=== PATIENT | female | born 1980 | race Caucasian/White ===

== ENCOUNTER → 2016-05-23 | Outpatient (CLI) | payer OTHER ==
[~2016-05-23] MED LIST: CETI10TA10 PO; SERT50TA PO
== END | disposition home or self-care (01) ==
LOC: C.LABSPEC 09:48
PROVIDERS: ATTEND Obstetrics & Gynecology
DX: N76.0 Acute vaginitis (principal)

== ENCOUNTER → 2016-12-31 | Outpatient (CLI) | payer OTHER ==
[2016-12-31 10:30] LABS: CHOLESTEROL/HDL RATIO 4.1
== END | disposition home or self-care (01) ==
LOC: C.LAB1850 08:15
PROVIDERS: ATTEND Family Medicine
DX: Z13.220 Encounter for screening for lipoid disorders (principal); Z13.1 Encounter for screening for diabetes mellitus

== ENCOUNTER 2017-01-23 03:55 | Emergency (ER) | payer OTHER ==
[2017-01-23] MEDS ORDERED: KETOROLAC TROMETHAMINE 30 MG/ML VIAL ONE (04:29)
[2017-01-23] MEDS ORDERED: ONDANSETRON INJ 2 MG/ML 2 ML VIAL ONE (04:29)
[2017-01-23 05:07] LABS: BASO % 0.1 %; BASO ABS # 0.01 K/uL (0-0.2); COMPLETE YES; EOS % 0.5 %; HEMATOCRIT 35.1 % (37-47); IG% 0.1 %; LYMPH % 9.1 %; LYMPH ABS # 0.93 K/uL (1.2-3.4); MEAN CELL VOLUME 91.2 fL (80-100); MEAN CORPUSCULAR HEMOGLOBIN 31.7 pg (25-34); MEAN CORPUSCULAR HGB CONC 34.8 g/dl (32-36); MEAN PLATELET VOLUME 9.6 fL (7.4-10.4); MONO % 5.8 %; NEUT % 84.4 %; PLATELET COUNT 224 K/uL (130-400); RED BLOOD COUNT 3.85 M/uL (4.2-5.4); WHITE BLOOD COUNT 10.17 K/uL (4.8-10.8)
--- NOTE | 2017-01-23 05:11 | EMERGENCY ROOM VISIT NOTE ---
History Report prepared by Jimenez: Daphne Morales Under the Supervision of: Dr. Nurys Lim D.O. First contact with patient: 04:28 Chief Complaint: ILLNESS Stated Complaint: FEVER,N/V/D,DIZZY History of Present Illness The patient is a 36 year old female who presents to the Emergency Room with complaints of sudden diarrhea beginning 2 days ago. The patient also reports having a fever 2 days ago, and vomiting beginning yesterday. She states that she took a hot shower today to stop the chills, but when she got out of the shower, she felt as if she was going to pass out. She also states that she is barely urinating and that she has had a headache. 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 Source of History: patient Onset: 2 days ago Position: other (global) Quality: other (diarrhea) Timing: other (sudden) Associated Symptoms: + fevers, + chills, + headache, + vomiting, + urinary symptoms, + weakness Review of Systems See HPI for pertinent positives & negatives. A total of 10 systems reviewed and were otherwise negative. Past Medical & Surgical Medical Problems: (1) Hyperlipidemia Family History No pertinent family history Social History Marital Status: Housing Status: lives with family Occupation Status: employed Current/Historical Medications Scheduled Sertraline (Zoloft), 50 MG PO DAILY Scheduled PRN Cetirizine Hcl (Zyrtec), 10 MG PO DAILY PRN for ALLERGIC REACTION Allergies Coded Allergies: No Known Allergies (Unverified , 02/15/13) Physical Exam Vital Signs Date Time Temp Pulse Resp B/P (MAP) Pulse Ox O2 Delivery O2 Flow Rate FiO2 01/23/17 05:47 96 20 97 Physical Exam HEENT: Head - normocephalic and atraumatic Pupils are equal, round, and reactive to light. Extraocular eye muscles are intact, and sclera are anicteric. Nose - moist nasal mucosa without discharge. Mouth - moist buccal mucosa. Oropharynx is nonerythematous and there is no tonsillar exudate or edema noted. Neck: Supple; no JVD, nuchal rigidity, cervical lymphadenopathy. Heart: Regular rate and rhythm. There is a normal S1 and S2 with no murmurs, clicks, or gallops appreciated. Lungs: Clear to auscultation bilaterally with no wheezes, rales, or rhonchi. Abdomen: Soft, completely nontender, nondistended, with good bowel sounds. There are no palpable pulsatile masses or hepatosplenomegaly. There is no guarding, rigidity, or rebound noted. Extremities: No evidence of cyanosis, clubbing, or edema. There are easily palpable peripheral pulses. Skin: warm and dry with good turgor and no rashes. Pale. Medical Decision & Procedures Laboratory Results 01/23/17 04:30 Red Blood Count 3.85, Mean Corpuscular Volume 91.2, Mean Corpuscular Hemoglobin 31.7, Mean Corpuscular Hemoglobin Concent 34.8, Mean Platelet Volume 9.6, Neutrophils (%) (Auto) 84.4, Lymphocytes (%) (Auto) 9.1, Monocytes (%) (Auto) 5.8, Eosinophils (%) (Auto) 0.5, Basophils (%) (Auto) 0.1, Neutrophils # (Auto) 8.58, Lymphocytes # (Auto) 0.93, Monocytes # (Auto) 0.59, Eosinophils # (Auto) 0.05, Basophils # (Auto) 0.01 01/23/17 04:30 Test 01/23/17 04:30 White Blood Count 10.17 K/uL (4.8-10.8) Red Blood Count 3.85 M/uL (4.2-5.4) Hemoglobin 12.2 g/dL (12.0-16.0) Hematocrit 35.1 % (37-47) Mean Corpuscular Volume 91.2 fL (80-100) Mean Corpuscular Hemoglobin 31.7 pg (25-34) Mean Corpuscular Hemoglobin Concent 34.8 g/dl (32-36) Platelet Count 224 K/uL (130-400) Mean Platelet Volume 9.6 fL (7.4-10.4) Neutrophils (%) (Auto) 84.4 % Lymphocytes (%) (Auto) 9.1 % Monocytes (%) (Auto) 5.8 % Eosinophils (%) (Auto) 0.5 % Basophils (%) (Auto) 0.1 % Neutrophils # (Auto) 8.58 K/uL (1.4-6.5) Lymphocytes # (Auto) 0.93 K/uL (1.2-3.4) Monocytes # (Auto) 0.59 K/uL (0.11-0.59) Eosinophils # (Auto) 0.05 K/uL (0-0.5) Basophils # (Auto) 0.01 K/uL (0-0.2) RDW Standard Deviation 41.5 fL (36.4-46.3) RDW Coefficient of Variation 12.5 % (11.5-14.5) Immature Granulocyte % (Auto) 0.1 % Immature Granulocyte # (Auto) 0.01 K/uL (0.00-0.02) Anion Gap 5.0 mmol/L (3-11) Estimated GFR () 103.7 Estimated GFR (Non- 89.5 BUN/Creatinine Ratio 10.4 (10-20) Calcium Level 8.2 mg/dl (8.5-10.1) Laboratory results per my review. Medications Administered Medications (Trade) Dose Ordered Sig/Diego Route Start Time Stop Time Status Last Admin Dose Admin Ketorolac Tromethamine (Toradol Inj) 30 mg STK-MED ONCE .ROUTE 01/23/17 04:29 01/23/17 04:30 DC 01/23/17 04:29 30 MG Ondansetron HCl (Zofran Inj) 4 mg STK-MED ONCE .ROUTE 01/23/17 04:29 01/23/17 04:30 DC 01/23/17 04:29 4 MG Procedure Zofran Inj 4 mg IV Toradol Inj 30 mg IV ED Course 0420: Past medical records reviewed. The patient was evaluated in room B11. A complete history and physical exam was performed. An IV lock was initiated and labs were drawn as above. 0429: Ordered Zofran Inj 4 mg IV, Toradol Inj 30 mg IV. The patient was given 2 L of normal saline solution. 0520: The patient feels better and states that her nausea is gone. 0530: Upon reevaluation, the patient is resting. I discussed findings and results with her. She verbalized agreement of the treatment plan. She was discharged back to work. Medical Decision The patient is a 36 year old female who presents to the ED with diarrhea and vomiting. Differential diagnosis includes gastroenteritis, infectious diarrhea, meningitis, dehydration, and food-borne illness. Labs today: Normal renal function Glucose 114 No leukocytosis Stable H and H the patient has developed significant nausea, vomiting and diarrhea over the past couple of days. The patient had a near-syncopal event tonight at work and is concerned that she may be dehydrated. She felt significantly better after receiving IV crystalloid therapy, Zofran, and Toradol. Medication Reconcilliation Current Medication List: was personally reviewed by me Blood Pressure Screening Patient's blood pressure: Normal blood pressure Impression Primary Impression: Vomiting Additional Impression: Diarrhea Scribe Attestation The scribe's documentation has been prepared under my direction and personally reviewed by me in its entirety. I confirm that the note above accurately reflects all work, treatment, procedures, and medical decision making performed by me. Departure Information Dispostion Home / Self-Care Referrals Josh. Herron M.D. (PCP) Patient Instructions My [facility] Problem Qualifiers Primary Impression: Vomiting Vomiting type: unspecified Vomiting Intractability: non-intractable Nausea presence: with nausea Qualified Codes: R11.2 - Nausea with vomiting, unspecified Additional Impression: Diarrhea Diarrhea type: unspecified type Qualified Codes: R19.7 - Diarrhea, unspecified
[2017-01-23 05:27] LABS: BLOOD UREA NITROGEN 9 mg/dl (7-18); BUN/CREATININE RATIO 10.4 (10-20); CALCIUM 8.2 mg/dl (8.5-10.1); CARBON DIOXIDE 25 mmol/L (21-32); CHLORIDE 106 mmol/L (98-107); CREATININE 0.83 mg/dl (0.60-1.20); GLUCOSE 114 mg/dl (70-99); POTASSIUM 3.8 mmol/L (3.5-5.1); SODIUM 136 mmol/L (136-145)
[2017-01-23 05:47] VITALS: PULSE 96; O2SAT 97
== END 2017-01-23 05:49 | disposition home or self-care (01) ==
LOC: C.ED 03:55 → C.EDB 05:49
DX: R11.2 Nausea with vomiting, unspecified (principal); R19.7 Diarrhea, unspecified; E78.5 Hyperlipidemia, unspecified; Z79.899 Other long term (current) drug therapy

== ENCOUNTER → 2017-12-09 | Outpatient (CLI) | payer OTHER ==
[2017-12-09 12:34] LABS: BASO % 0.2 %; BASO ABS # 0.01 K/uL (0-0.2); EOS % 1.7 %; HEMATOCRIT 38.2 % (37-47); HEMOGLOBIN 13.1 g/dL (12.0-16.0); IG# 0.01 K/uL (0.00-0.02); LYMPH % 38.6 %; LYMPH ABS # 2.26 K/uL (1.2-3.4); MEAN CELL VOLUME 92.3 fL (80-100); MEAN CORPUSCULAR HEMOGLOBIN 31.6 pg (25-34); MEAN CORPUSCULAR HGB CONC 34.3 g/dl (32-36); MEAN PLATELET VOLUME 10.4 fL (7.4-10.4); MONO % 7.2 %; MONO ABS # 0.42 K/uL (0.11-0.59); NEUT % 52.1 %; NEUT ABS # 3.06 K/uL (1.4-6.5); PLATELET COUNT 263 K/uL (130-400); RED CELL DISTRIBUTION WIDTH CV 12.9 % (11.5-14.5); RED CELL DISTRIBUTION WIDTH SD 43.6 fL (36.4-46.3); WHITE BLOOD COUNT 5.86 K/uL (4.8-10.8)
[2017-12-09 12:45] LABS: ALBUMIN 4.4 gm/dl (3.4-5.0); ALKALINE PHOSPHATASE 47 U/L (45-117); ALT/SGPT 23 U/L (12-78); AST/SGOT 16 U/L (15-37); BLOOD UREA NITROGEN 13 mg/dl (7-18); CALCIUM 9.8 mg/dl (8.5-10.1); CARBON DIOXIDE 24 mmol/L (21-32); CREATININE 0.71 mg/dl (0.60-1.20); GLUCOSE 87 mg/dl (70-99); POTASSIUM 4.3 mmol/L (3.5-5.1); SODIUM 138 mmol/L (136-145); TOTAL PROTEIN 7.7 gm/dl (6.4-8.2)
== END | disposition home or self-care (01) ==
LOC: C.LAB1850 11:15
PROVIDERS: ATTEND Physician Assistant
DX: R42 Dizziness and giddiness (principal); W57.XXXA Bitten or stung by nonvenomous insect and other nonvenomous arthropods, initial encounter

== ENCOUNTER 2024-10-27 02:37 | Observation (INO) ==
--- NOTE | 2024-10-27 02:59 | Emergency Department Note ---
Impression & Plan Near syncope, Acute gastroenteritis, Leukocytosis ED Provider Note NAME: JD BARBOUR AGE: 43 SEX: F : 1980 ARRIVES VIA: Walk-In INFORMANT: Patient ED PROVIDER(S): Kit Sutherland MD CHIEF COMPLAINT: Nausea, vomiting, diarrhea, near syncope. 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 She reports diarrhea as watery green stool. She attempted to hydrate with Gatorade but immediately had emesis. She reports that she had a near syncopal event where she was standing in her closet and suddenly had to rapidly lower self to the ground before losing consciousness. She reports that she did have a fleeting episode of right lower quadrant pain a couple weeks ago. She reports she did have some chills tonight but suspects it was likely related to her pain. She denies any measured fevers. She denies cough or congestion. Patient reports she is on Mounjaro and did have an increase in her dose a month ago. On evaluation the patient is uncomfortable in mild pain distress with heart rate in the 110s and blood pressure 90s/70s and vital signs otherwise stable. She appears clinically dry. She has generalized abdominal tenderness without guarding or rebound. EKG without overt acute ischemia. Patient was treated with IV hydration with 2 L normal saline, WBC 17K with neutrophilia but no left shift, nonspecific. H/H and platelets within normal limits. Chemistry without metabolic acidosis. Electrolytes and LFTs unremarkable. Lipase is normal. hCG negative. CT of the abdomen pelvis was performed and demonstrates evidence of gastroenteritis. Incidental description of distended uterine cavity reaching 17 mm with slightly dense contents likely related to the patient's report of being at the end of her menstrual cycle per our discussion. IV APAP, famotidine and Zofran in addition to IM dicyclomine for component of GI spasm. Upon evaluation the patient did report feeling improved. Heart rate had improved as well as abdominal pain. However, given the severity of the patient's symptoms with near syncope she does agree with plan for admission for further management. Stool studies ordered however sample collection pending. Case was discussed with Dr. Prado [facility] hospitalist, who will evaluate the patient for admission. Further management per admitting team. Triage Nursing notes reviewed and agree them. Prior/external medical records reviewed Vital Signs: reviewed Differential diagnosis: Gastroenteritis, food borne illness, infections, appendicitis, diverticulitis, inflammatory bowel disease, obstruction, GI bleed, biliary pathology, volvulus, as well as other pathologies. ER treatment provided: See below. Diagnostics interpreted by me: ECG: Normal sinus rhythm, 93 bpm, no ectopy, no overt ST elevation or depression, QTc 440, QRS 78 Cardiac Monitoring: An order for continuous cardiac monitoring was placed and demonstrated Normal sinus rhythm, 93 bpm, no ectopy. Laboratory studies: See below Imaging studies: See below Consultation(s): Dr. Prado [facility] hospitalist HPI: Per MDM. ROS: See above HPI for pertinent positives & negatives. A total of 10 systems reviewed and were otherwise negative. VITALS:See Below PHYSICAL EXAMINATION: GENERAL: Awake, alert, uncomfortable/ill-appearing, in no distress HENT: Normocephalic, atraumatic. Oropharynx with dry mucous membranes and otherwise unremarkable. EYES: Normal conjunctiva. Sclera non-icteric. NECK: Supple. No nuchal rigidity. FROM. No JVD. RESPIRATORY: Clear to auscultation. CARDIAC: Tachycardic rate, normal rhythm. Extremities warm and well perfused. Pulses equal. ABDOMEN: Soft, non-distended. Generalized abdominal tenderness to palpation. No rebound or guarding. MUSCULOSKELETAL: Chest examination reveals no tenderness. The back is symmetrical on inspection without obvious abnormality. There is no CVA tenderness to palpation. No joint edema. LOWER EXTREMITIES: Calves are equal size bilaterally and non-tender. No edema. No discoloration. NEURO: Normal sensorium. No sensory or motor deficits noted. SKIN: No rash or jaundice noted. Kit Sutherland MD Past Med/Surg History Problem List (Updated 10/27/24 @ 19:40 by Kit Sutherland MD) Volume depletion Syncope Gastroenteritis Intractable nausea Leukocytosis (Acute) Acute gastroenteritis (Acute) Near syncope (Acute) Health care maintenance Type 2 diabetes mellitus History of insulin controlled gestational diabetes mellitus Exercise-induced asthma Overweight (BMI 25.0-29.9) Impaired fasting glucose Dietary counseling and surveillance Vitamin D deficiency Metabolic syndrome Allergy Seasonal allergies (Chronic) Depression with anxiety (Chronic) Restless legs syndrome (Chronic) Hyperlipidemia (Chronic) Medical History Hx of ectopic Metabolic syndrome History of insulin controlled gestational diabetes mellitus (GDM) Seasonal allergies Hyperlipidemia History of asthma exercise induced, no issue due to recent weight loss Depression with anxiety History of dysphasia Type 2 diabetes mellitus well controlled / no meds with weight loss Choking sensation hx Lump on finger hx Lead toxicity hx Thyromegaly Shortness of breath hx - has resolved since weight loss Hx of fall (2022) few weeks ago, thrown from a horse (no head injury or LOC) Residual bruising/pain improving (surgeon aware) Restless legs secondary to hypothyroidism Seizure disorder Remote hx, most recent seizure 18 years ago (partial > complex) Seizures have only been in setting of severe sleep deprivation (>72 hours) Surgical History History of right salpingo-oophorectomy H/O umbilical hernia repair (07/01/22) Umbilical hernia repair. Dr. 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 Grandmother No problems noted. 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 Beliefs That Will Affect Care: None marital status: Current Living Situation: Spouse current occupational status: employed current occupation: How many Children do You have: 2 Feels Safe at Home: Yes Diet: regular during the past year weight has: increased > 10 lbs Dental Care, Regularly: Yes Physical Activity Frequency: Daily Seatbelt Use: always Sunscreen Use: Yes Assistive Devices: Contacts and Glasses Allergies Allergies Allergy/AdvReac Type Severity Reaction Status Date / Time No Known Allergies Allergy Verified 09/15/24 08:31 Home Meds Home Medications Medication Instructions Recorded Confirmed cetirizine 10 mg tablet (Zyrtec) 10 mg PO QAM 10/19/18 09/15/24 Previous Rx's Medication Instructions Recorded Dexcom G7 Sensor (blood-glucose #3 ea 03/31/24 sensor) sertraline 100 mg tablet (Zoloft) 100 mg PO QAM #90 tabs 06/25/24 estradiol 0.05 mg-norethindrone 1 patch transdermal .COMPLEX #8 ea 07/19/24 0.14 mg/24 hr semiwkly transderm patch (CombiPatch) tirzepatide 5 mg/0.5 mL 5 mg (0.5 mL) subcut Q7D #2 mL 08/24/24 subcutaneous pen injector rosuvastatin 10 mg tablet 10 mg PO DAILY #90 tabs 10/03/24 Results & Data (ED) Vital Signs Vital Signs - 24 hr 10/27/24 02:38 10/27/24 02:40 10/27/24 02:51 Temperature 36.7 C Temperature Source Temporal Artery Scan Pulse Rate 113 H 108 H Pulse Rate [Apical] Pulse Rhythm Regular Pulse Rhythm [Apical] Pulse Strength Normal Pulse Strength [Apical] Respiratory Rate 18 Respiratory Effort / Characteristics Non-Labored Non-Labored Spontaneous Respiratory Depth Normal Normal Respiratory Pattern Regular Blood Pressure 98/71 L Blood Pressure [Right Arm] Blood Pressure Mean 80 Blood Pressure Mean [Right Arm] Blood Pressure Position Sitting Blood Pressure Position [Right Arm] Pulse Oximetry 100 Oxygen Delivery Method Room Air Sepsis Recent Fever Within 48 Hours No Sepsis New/Unexplained Change in Mental Status N/A Sepsis Action Taken by Nursing Physician Notified 10/27/24 02:56 10/27/24 04:00 Temperature Temperature Source Pulse Rate Pulse Rate [Apical] 93 H Pulse Rhythm Pulse Rhythm [Apical] Regular Pulse Strength Pulse Strength [Apical] Normal Respiratory Rate 18 Respiratory Effort / Characteristics Non-Labored Spontaneous Respiratory Depth Normal Respiratory Pattern Regular Blood Pressure Blood Pressure [Right Arm] 101/59 L Blood Pressure Mean Blood Pressure Mean [Right Arm] 73 Blood Pressure Position Blood Pressure Position [Right Arm] Semi-fowlers Pulse Oximetry 97 Oxygen Delivery Method Room Air Room Air Sepsis Recent Fever Within 48 Hours Sepsis New/Unexplained Change in Mental Status Sepsis Action Taken by Nursing Laboratory Data Attestation: I reviewed the patient's lab results. 10/27/24 02:56 10/27/24 02:53 Lab Results 10/27/24 10/27/24 Range/Units 02:53 02:56 WBC 17.05 H (4.8-10.8) K/ul RBC 4.46 (4.20-5.40) M/uL Hgb 13.8 (12.0-16.0) g/dl Hct 39.0 (37.0-47.0) % MCV 87.4 (80.0-100.0) fL MCH 30.9 (25.0-34.0) pg MCHC 35.4 (32.0-36.0) g/dL RDW Std Deviation 38.9 (36.4-46.3) fL RDW Coeff of Josefa 12.0 (11.5-14.5) % Plt Count 287 (130-400) K/uL MPV 10.0 (9.4-12.4) fL Immature Gran % (Auto) 0.4 % Neut % (Auto) 86.6 % Lymph % (Auto) 7.0 % Young % (Auto) 4.7 % Eos % (Auto) 1.0 % Baso % (Auto) 0.3 % Neut # (Auto) 14.77 H (1.40-6.50) K/uL Lymph # (Auto) 1.20 (1.20-3.40) K/uL Young # (Auto) 0.80 H (0.11-0.59) K/uL Eos # (Auto) 0.17 (0.00-0.50) K/uL Baso # (Auto) 0.05 (0.00-0.20) K/uL Immature Gran # (Auto) 0.06 (0.01-0.20) K/uL Sodium 141 (136-145) mmol/L Potassium 4.1 (3.5-5.1) mmol/L Chloride 106 (98-107) mmol/L Carbon Dioxide 26 (21-32) mmol/L Anion Gap 9 (3-11) BUN 17 (6-23) mg/dl Creatinine 1.05 (0.6-1.2) mg/dl Est Cr Clr Drug Dosing Not Reportable eGFR 66.77 BUN/Creatinine Ratio 16.2 (10-20) Glucose 126 H (70-99(Fasting)) mg/dl Calcium 10.1 (8.6-10.3) mg/dl Magnesium 1.9 (1.7-2.4) mg/dl Total Bilirubin 0.7 (0.2-1.0) mg/dl AST 16 (13-39) U/L ALT 15 (7-52) U/L Alkaline Phosphatase 40 (34-104) U/L Total Protein 8.0 (6.0-8.3) gm/dl Albumin 4.9 (3.4-5.0) gm/dl Globulin 3.1 (2.5-4.0) gm/dl Albumin/Globulin Ratio 1.6 (0.9-2) Lipase 22 (11-82) U/L HCG, Qual Negative (Negative) Administered Medications Discontinued Medications Dicyclomine HCl (Dicyclomine Hcl 10 Mg/Ml 2 Ml Amp/Vial) 20 mg IM NOW ONE Stop: 10/27/24 02:54 Last Admin: 10/27/24 03:14 Dose: 20 mg Documented By: IDD Sodium Chloride (Nss) 1,000 mls @ 999 mls/hr IV .Q1H1M CARMEN Stop: 10/27/24 05:00 Last Infusion: 10/27/24 05:16 Dose: Infused Documented By: Admin: 10/27/24 04:05 Dose: 999 mls/hr Documented By: Infusion: 10/27/24 04:05 Dose: Infused Documented By: Admin: 10/27/24 03:14 Dose: 999 mls/hr Documented By: IDD Acetaminophen (Ofirmev) 1,000 mg in 100 mls @ 400 mls/hr IV NOW STA Stop: 10/27/24 03:07 Last Infusion: 10/27/24 04:05 Dose: Infused Documented By: Admin: 10/27/24 03:14 Dose: 400 mls/hr Documented By: IDD Famotidine (Pepcid 20mg Iv Push) 20 mg in 5 mls @ 2.5 mls/min IV NOW STA Stop: 10/27/24 02:54 Last Admin: 10/27/24 03:14 Dose: 2.5 mls/min Documented By: HENRIK Sodium Chloride (Nss) 1,000 mls @ 80 mls/hr IV .[id number] CARMNE Stop: 10/30/24 08:34 Last Infusion: 10/27/24 15:28 Dose: Infused Documented By: Admin: 10/27/24 10:00 Dose: 125 mls/hr Documented By: PAL Famotidine (Pepcid 20mg Iv Push) 20 mg in 5 mls @ 2.5 mls/min IV Q12H [facility] Stop: 11/26/24 14:59 Last Admin: 10/27/24 15:28 Dose: Not Given Documented By: PAL Ioversol (Optiray 320 100ml) 100 ml IV ONCE ONE Stop: 10/27/24 03:46 Last Admin: 10/27/24 03:45 Dose: 93 ml Documented By: JERSEY Miscellaneous (Continuous Glucose Monitor) 0 each N/A ACHS [facility] Stop: 11/26/24 11:29 Last Admin: 10/27/24 12:19 Dose: Not Given Documented By: PAL Ondansetron HCl (Ondansetron Inj 2 Mg/Ml 2 Ml Vial) 4 mg IV NOW STA Stop: 10/27/24 02:54 Last Admin: 10/27/24 03:14 Dose: 4 mg Documented By: HENRIK Ondansetron HCl (Ondansetron Inj 2 Mg/Ml 2 Ml Vial) 4 mg IV Q6H PRN PRN Reason: Nausea Stop: 11/26/24 08:34 Last Admin: 10/27/24 10:06 Dose: 4 mg Documented By: PAL Sertraline HCl (Sertraline Hcl 100 Mg Tablet) 100 mg PO QAM [facility] Stop: 11/26/24 08:59 Last Admin: 10/27/24 09:59 Dose: 100 mg Documented By: PAL Imaging Data Radiologist's Impression: Abdomen/Pelvis CT 10/27/24 02:58 EXAM: CT abd pelvis IV con only CLINICAL HISTORY: abdominal pain, nausea, vomiting, diarrhea. TECHNIQUE: CT of the abdomen was performed with intravenous contrast, with the following protocol: axial images, and reconstructed coronal and sagittal images. Intravenous contrast, 93 ml Optiray 320, was administered using automated injection techniques. One of the following dose reduction techniques was utilized for this exam: Automated exposure control, adjustment of the mA and/or kV according to patient size, and use of iterative reconstruction. CTDI: 21.14 mGY, DLP: 1010.51 mGy-cm COMPARISON: None. FINDINGS: Abdomen: Liver: Normal in size, shape, and density. No focal lesions, cysts, or masses were identified. Gallbladder and Biliary System: The gallbladder is normal in size and shape. No wall thickening, pericholecystic fluid, or gallstones were identified. Pancreas: The pancreatic head, body, and tail are visualized and appear normal in size and density. No pancreatic masses or calcifications were noted. Spleen: Normal in size, shape, and density. No splenic lesions or masses were identified. Kidneys and Adrenal Glands: Both kidneys are normal in size, shape, and position. Cortical thickness is within normal limits. No renal calculi or hydronephrosis. Adrenal glands are unremarkable. Appendix: The appendix is normal is not normally visualized. No right iliac fossa inflammatory changes. Pelvis: Urinary Bladder: Normal in contour and wall thickness. No intraluminal lesions. Uterus: Normal in size and contour. No masses or abnormal thickening. Distended uterine cavity reaching 17 mm, with slightly dense contents, correlated clinically. Ovaries: No gross abnormalities noted. Vagina: Normal in contour and wall thickness. Cervix: No evidence of mass or abnormal thickening. Peritoneal and Retroperitoneal Structures: No free fluid or abnormal fluid collections were identified within the abdomen or pelvis. No lymphadenopathy was noted. Bowel: Mild uniform mural thickening of the gastric fundus and proximal body, likely underdistended or underlying inflammatory changes. correlated clinically. Midbody indentation, likely peristaltic. The visualized bowel loops are normal in caliber and appearance. No evidence of bowel obstruction or wall thickening. Bones and Soft Tissues: Pelvic bones and soft tissues are unremarkable. No fractures or abnormal masses were identified. IMPRESSION: 1. No acute abdominal or pelvic abnormality. 2. Mild uniform mural thickening of the gastric fundus and proximal body could be underdistended or underlying inflammatory changes. correlate clinically. Midbody indentation, likely peristaltic. 3. Distended uterine cavity reaching 17 mm, with slightly dense contents, correlated clinically. Electronically signed by Ovidio Hathaway 10-27-2024 04:26 AM Discharge Plan Visit Data Chief Complaint: Abdominal Pain Stated Complaint: SEVERE ABD PAIN, DIARREHEA, VOMITING. ED Provider: Kit Sutherland Discharge Problem: Near syncope, Acute gastroenteritis, Leukocytosis Patient Disposition: Admitted As Inpatient Condition: Good Discharge Instructions Interventions: ED Discharge Assessment Last Done: 10/27/24 07:51 Discharge Problem: Leukocytosis Qualifiers: Leukocytosis type: unspecified Qualified Code(s): D72.829 - Elevated white blood cell count, unspecified
[2024-10-27 03:07] LABS: Basophils # (auto) 0.05 K/uL (0.00-0.20); Basophils % (auto) 0.3 %; Eosinophils # (auto) 0.17 K/uL (0.00-0.50); Hemoglobin 13.8 g/dl (12.0-16.0); Immature Granulocytes # (auto) 0.06 K/uL (0.01-0.20); Immature Granulocytes % (auto) 0.4 %; Mean Corpuscular Hemoglobin 30.9 pg (25.0-34.0); Mean Corpuscular Hgb Conc 35.4 g/dL (32.0-36.0); Mean Corpuscular Volume 87.4 fL (80.0-100.0); Monocytes % (auto) 4.7 %; Neutrophils # (auto) 14.77 K/uL (1.40-6.50); Neutrophils % (auto) 86.6 %; Platelet Count 287 K/uL (130-400); RDW Standard Deviation 38.9 fL (36.4-46.3); Red Blood Count 4.46 M/uL (4.20-5.40); White Blood Count 17.05 K/ul (4.8-10.8)
[2024-10-27] MEDS: DICYCLOMINE HCL 10 MG/ML 2 ML AMP/VIAL IM ONE (03:14)
[2024-10-27] MEDS: FAMOTIDINE 20MG IV PUSH 20 MG/5 ML SYR IV STA (03:14)
[2024-10-27] MEDS: SODIUM CHLORIDE 0.9% 1,000 ML IV SCH ×2 (03:14→10:00)
[2024-10-27] MEDS: ONDANSETRON INJ 2 MG/ML 2 ML VIAL IV STA (03:14)
[2024-10-27] MEDS: ACETAMINOPHEN 1,000 MG/100 ML VIAL IV STA (03:14)
[2024-10-27 03:23] LABS: Pregnancy Test, Serum Negative (Negative)
[2024-10-27 03:25] LABS: Alanine Aminotransferase 15 U/L (7-52); Albumin Globulin Ratio 1.6 (0.9-2); Albumin Level 4.9 gm/dl (3.4-5.0); Alkaline Phosphatase 40 U/L (34-104); Anion Gap 9 (3-11); Aspartate Aminotransferase 16 U/L (13-39); BUN Creatinine Ratio 16.2 (10-20); Bilirubin,Total 0.7 mg/dl (0.2-1.0); Blood Urea Nitrogen 17 mg/dl (6-23); Calcium 10.1 mg/dl (8.6-10.3); Carbon Dioxide 26 mmol/L (21-32); Chloride 106 mmol/L (98-107); Globulin 3.1 gm/dl (2.5-4.0); Glucose 126 mg/dl (70-99(Fasting)); Lipase 22 U/L (11-82); Magnesium 1.9 mg/dl (1.7-2.4); Potassium 4.1 mmol/L (3.5-5.1); Sodium 141 mmol/L (136-145)
[2024-10-27] MEDS: OPTIRAY 320 100ml IV ONE (03:45)
--- NOTE | 2024-10-27 04:26 | CT Scan Report ---
EXAM: CT abd pelvis IV con only CLINICAL HISTORY: abdominal pain, nausea, vomiting, diarrhea. TECHNIQUE: CT of the abdomen was performed with intravenous contrast, with the following protocol: axial images, and reconstructed coronal and sagittal images. Intravenous contrast, 93 ml Optiray 320, was administered using automated injection techniques. One of the following dose reduction techniques was utilized for this exam: Automated exposure control, adjustment of the mA and/or kV according to patient size, and use of iterative reconstruction. CTDI: 21.14 mGY, DLP: 1010.51 mGy-cm COMPARISON: None. FINDINGS: Abdomen: Liver: Normal in size, shape, and density. No focal lesions, cysts, or masses were identified. Gallbladder and Biliary System: The gallbladder is normal in size and shape. No wall thickening, pericholecystic fluid, or gallstones were identified. Pancreas: The pancreatic head, body, and tail are visualized and appear normal in size and density. No pancreatic masses or calcifications were noted. Spleen: Normal in size, shape, and density. No splenic lesions or masses were identified. Kidneys and Adrenal Glands: Both kidneys are normal in size, shape, and position. Cortical thickness is within normal limits. No renal calculi or hydronephrosis. Adrenal glands are unremarkable. Appendix: The appendix is normal is not normally visualized. No right iliac fossa inflammatory changes. Pelvis: Urinary Bladder: Normal in contour and wall thickness. No intraluminal lesions. Uterus: Normal in size and contour. No masses or abnormal thickening. Distended uterine cavity reaching 17 mm, with slightly dense contents, correlated clinically. Ovaries: No gross abnormalities noted. Vagina: Normal in contour and wall thickness. Cervix: No evidence of mass or abnormal thickening. Peritoneal and Retroperitoneal Structures: No free fluid or abnormal fluid collections were identified within the abdomen or pelvis. No lymphadenopathy was noted. Bowel: Mild uniform mural thickening of the gastric fundus and proximal body, likely underdistended or underlying inflammatory changes. correlated clinically. Midbody indentation, likely peristaltic. The visualized bowel loops are normal in caliber and appearance. No evidence of bowel obstruction or wall thickening. Bones and Soft Tissues: Pelvic bones and soft tissues are unremarkable. No fractures or abnormal masses were identified. IMPRESSION: 1. No acute abdominal or pelvic abnormality. 2. Mild uniform mural thickening of the gastric fundus and proximal body could be underdistended or underlying inflammatory changes. correlate clinically. Midbody indentation, likely peristaltic. 3. Distended uterine cavity reaching 17 mm, with slightly dense contents, correlated clinically. Electronically signed by Ovidio Hathaway 10-27-2024 04:26 AM
--- NOTE | 2024-10-27 05:25 | History & Physical Report ---
Date of Service October 27, 2024 Assessment & Plan (1) Type 2 diabetes mellitus: (2) Depression with anxiety: Plan 44-year-old female with a history of type 2 diabetes treated with Mounjaro metabolic syndrome perimenopausal dyslipidemia and depression who presents with abrupt onset of GI symptoms including nausea vomiting and greenish diarrhea. This was associated with presyncopal event at home. Patient had good improvement with hydration and antiemetic therapy and with leukocytosis which may be reactive patient is recommended for observation for continued hydration and assurance that she can take p.o. medications and food #Intractable nausea vomiting diarrhea. Certainly could be food related this did occur after supper I think even though her son did not get help food contamination can be sometimes sporadic will provide additional liter of fluid offered as needed Zofran and Phenergan. Continue with IV famotidine. Hemoglobin is stable BUN is not elevated do not suspect overt peptic ulcer disease at this point in time. Discussed possibility of Mounjaro side effect patient has been on it for a few months this makes it less likely As well as a CT scan do show increased contents of uterus patient was made aware of this she states she is considering discontinuing her topical hormone patches #Diabetes patient stressed appetite is held patient will be on a clear liquid diabetic diet at this point in time last A1c was 5.4 this was in September #Depression continues on sertraline #Dyslipidemia rosuvastatin is held at this time until her GI symptoms improve #DVT prevention is SCDs and early ambulation History of Present Illness Primary Care Provider: Elio Oh MD 43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 Reportedly the patient had a normal meal at home with her son who did not get sick and then she developed nausea and then began having fairly violent vomiting green stool and then presyncope and dizziness. Patient has a previous history of type 2 diabetes controlled with Mounjaro with great weight loss and lifestyle modification her A1c is now down to 5.4. She is perimenopausal taking topical estradiol norethindrone, dyslipidemia taking rosuvastatin, depression taking sertralinenone of these medications are new. Patient had a colonoscopy in September which is unrevealing and had a EGD October for dysphagia which showed normal esophagus and normal gastric body Patient denies recent loose stools has not been around any other ill contacts as mentioned her son is not ill She felt dramatic improvement, lessening abdominal pain and resolution of nausea with hydration and antiemetic therapy Allergies Allergy/AdvReac Type Severity Reaction Status Date / Time No Known Allergies Allergy Verified 09/15/24 08:31 Home Medications Medication Instructions Recorded Confirmed Type cetirizine 10 mg tablet (Zyrtec) 10 mg PO QAM 10/19/18 09/15/24 History Dexcom G7 Sensor (blood-glucose #3 ea 03/31/24 09/15/24 Rx sensor) sertraline 100 mg tablet (Zoloft) 100 mg PO QAM #90 tabs 06/25/24 09/15/24 Rx estradiol 0.05 mg-norethindrone 1 patch transdermal .COMPLEX #8 ea 07/19/24 09/15/24 Rx 0.14 mg/24 hr semiwkly transderm patch (CombiPatch) tirzepatide 5 mg/0.5 mL 5 mg (0.5 mL) subcut Q7D #2 mL 08/24/24 09/15/24 Rx subcutaneous pen injector rosuvastatin 10 mg tablet 10 mg PO DAILY #90 tabs 10/03/24 Rx Past Med/Surg History Problem List (Updated 10/27/24 @ 05:20 by Ruiz Prado MD) Intractable nausea Leukocytosis (Acute) Acute gastroenteritis (Acute) Near syncope (Acute) Health care maintenance Type 2 diabetes mellitus History of insulin controlled gestational diabetes mellitus Exercise-induced asthma Overweight (BMI 25.0-29.9) Impaired fasting glucose Dietary counseling and surveillance Vitamin D deficiency Metabolic syndrome Allergy Seasonal allergies (Chronic) Depression with anxiety (Chronic) Restless legs syndrome (Chronic) Hyperlipidemia (Chronic) Medical History Hx of ectopic Metabolic syndrome History of insulin controlled gestational diabetes mellitus (GDM) Seasonal allergies Hyperlipidemia History of asthma exercise induced, no issue due to recent weight loss Depression with anxiety History of dysphasia Type 2 diabetes mellitus well controlled / no meds with weight loss Choking sensation hx Lump on finger hx Lead toxicity hx Thyromegaly Shortness of breath hx - has resolved since weight loss Hx of fall (2022) few weeks ago, thrown from a horse (no head injury or LOC) Residual bruising/pain improving (surgeon aware) Restless legs secondary to hypothyroidism Seizure disorder Remote hx, most recent seizure 18 years ago (partial > complex) Seizures have only been in setting of severe sleep deprivation (>72 hours) Surgical History History of right salpingo-oophorectomy H/O umbilical hernia repair (07/01/22) Umbilical hernia repair. Dr. 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 Grandmother No problems noted. Grandmother (Paternal) Colorectal cancer Grandfather (Paternal) Colorectal cancer Father Hypertension Gout Mother Ovarian cancer Myocardial infarction Grandfather (Maternal) Flavia-Baig syndrome Aunt Flavia-Baig syndrome Family/Other Diabetes Denies family history of Prostate cancer Breast cancer Social History Smoking Status: Never smoker Second Hand Exposure: No; Do You Dip or Chew Tobacco: No; Hx Alcohol Use: Yes Alcohol type: beer, wine and hard liquor Alcohol Intake Frequency: 2-3 x/Week Hx Substance Use: No Preferred Language: Faroese Communication Ability: Effective Visual Impairment: No Limitations Hearing Ability: Normal Geotechnicial Properties Technician Required: No Beliefs That Will Affect Care: None marital status: Current Living Situation: Spouse current occupational status: employed current occupation: How many Children do You have: 2 Feels Safe at Home: Yes Diet: regular during the past year weight has: increased > 10 lbs Dental Care, Regularly: Yes Physical Activity Frequency: Daily Seatbelt Use: always Sunscreen Use: Yes Assistive Devices: Contacts Review of Systems Review of Systems: Mild distress and fatigue, presyncopal event at home no current headache, no visual changes no speech or swallowing issues no chest pain, pressure or palpitations no shortness of breath, cough or wheezes Resolution of previous abdominal pain, which was epigastric, associated with nausea or vomiting & diarrhea no dysuria, hematuria or frequency no focal joint pain or swelling Finishing menstrual cycle no back pain, CVA tenderness or radicular pain no bruising, bleeding or rashes no focal signs of weakness or numbness or altered sensation no complaints of anxiety or depression.. Physical Exam Physical Exam: The patient appeared well nourished and normally developed. Vital signs as documented. Head exam is normocephalic atraumatic Lungs are clear to auscultation, no focal loss of breath sounds Cardiac exam, Rhythm is regular.. No murmurs, rubs or gallops. Abdominal exam reveals normal bowel sounds, soft non tender, no masses Extremities are nonedematous and both pedal pulses are present Neurologic exam is alert and oriented, no focal loss of strength or sensation Skin is without bruises or rashes Psychologically is without concerns for anxiety or depression.. Results & Data Results & Data Vital Signs (Past 12 Hours) Vital Signs Temp Pulse Pulse Resp BP BP Pulse Ox 10/27/24 04:00 93 H 18 101/59 L 97 10/27/24 02:56 10/27/24 02:51 108 H 10/27/24 02:40 98.1 F 113 H 18 98/71 L 100 O2 Del Method 10/27/24 04:00 Room Air 10/27/24 02:56 Room Air 10/27/24 02:51 10/27/24 02:40 Room Air Laboratory Results Reviewed CBC reviewed chemistry reviewed CT scan abdomen pelvis results discussed case with Dr. Sutherland Reviewed old chart including previous endoscopy and colonoscopy reports Code Status & VTE Plan VTE Prophylaxis Plan VTE Prophylaxis will be ordered: Yes PG Care Time/CCT Total # of Minutes Spent Total Time Spent with Patient: Total time spent is greater than 50% in coordination of care (as documented) at patient's floor/unit and/or counseling patient: Coding Level of Care Code 61331 INT INP/OBS CARE 2/55MIN Diagnoses Type 2 diabetes mellitus E11.9 Depression with anxiety F41.8
[2024-10-27 08:22] VITALS: RESP 16
[2024-10-27] MEDS ORDERED: PROMETHAZINE 12.5 MG/50.5 ML BAG IV PRN (08:35)
[2024-10-27] MEDS ORDERED: ACETAMINOPHEN 325 MG TAB PO PRN (08:35)
[2024-10-27] MEDS ORDERED: Patient's HEIGHT &/or WEIGHT Needed STA (08:55)
[2024-10-27] MEDS: SERTRALINE HCL 100 MG TABLET PO SCH (09:59)
[2024-10-27] MEDS: ONDANSETRON INJ 2 MG/ML 2 ML VIAL IV PRN (10:06)
--- NOTE | 2024-10-27 12:00 | Hospitalist Progress Note ---
Date of Service October 27, 2024 Assessment & Plan (1) Gastroenteritis: Plan: Probable viral etiology. Supportive care. Antiemetics as needed. (2) Syncope: Plan: Due to orthostasis. IV fluid resuscitation. (3) Volume depletion: Plan: Due to nausea vomiting and diarrhea. Continue IV fluids. (4) Type 2 diabetes mellitus: Plan: Advancement to ADA diet. Sliding scale coverage. Plan Hopeful discharge to home tomorrow, October 28 Admission and Anticipated Discharge Date Admission Date: October 27, 2024 Subjective Alert and oriented. No distress. She appears to have a viral gastroenteritis causing nausea vomiting and diarrhea which led to orthostatic syncope prior to admission. She is now on IV fluids. Diet will be advanced as tolerated. Repeat labs tomorrow morning, October 28. Hopefully she will be able to go home tomorrow, October 28 Review of Systems 2 Review of Systems: Constitutionalno fever or chills ENTno blurred vision, no double vision, no epistaxis, no sore throat Respiratoryno cough, no wheezing, no shortness of breath Cardiacno palpitations, no chest pain, no syncope GInausea vomiting and watery diarrhea started within the past 24 hours. No melena or hematochezia. GUno urinary retention, no urinary incontinence, no dysuria, no hematuria Musculoskeletalno joint pain, no muscle tenderness Skinno bruising, no rashes, no pruritus Neurono isolated weakness, no paresthesia, no weakness Psychno depression, no anxiety Physical Exam 2 Physical Exam: General-alert and oriented x3, no fever, no chills HEENT-head atraumatic and normocephalic, pupils equal and reactive to light, extraocular muscles intact Neck-no lymphadenopathy or thyromegaly, trachea midline Chest-clear to auscultation. No rales, wheezing or rhonchi Cardiac-regular rate and rhythm, normal S1 and S2 Abdomen-normal bowel sounds, no hepatosplenomegaly Extremities-no cyanosis, clubbing, or edema Neuro-cranial nerves II through XII intact, motor and sensory function within normal limits, strength symmetrical, no focal deficits Psych-normal affect, normal mood Results & Data Results & Data Vital Signs (Past 12 Hours) Vital Signs Temp Pulse Pulse Resp BP BP Pulse Ox 10/27/24 08:21 36.6 C 82 16 97/62 L 97 10/27/24 08:10 36.6 C 82 16 97/62 L 97 10/27/24 07:51 91 H 13 98/60 L 95 10/27/24 07:31 99/57 L 10/27/24 07:00 97 H 13 84/50 L 96 10/27/24 06:35 94 H 10/27/24 06:00 96 H 18 96/57 L 93 10/27/24 04:00 93 H 18 101/59 L 97 10/27/24 02:56 10/27/24 02:51 108 H 10/27/24 02:40 36.7 C 113 H 18 98/71 L 100 O2 Del Method 10/27/24 08:21 Room Air 10/27/24 08:10 Room Air 10/27/24 07:51 Room Air 10/27/24 07:31 10/27/24 07:00 Room Air 10/27/24 06:35 10/27/24 06:00 Room Air 10/27/24 04:00 Room Air 10/27/24 02:56 Room Air 10/27/24 02:51 10/27/24 02:40 Room Air Laboratory Results 10/27/24 02:56 10/27/24 02:53 PG Care Time/CCT Total # of Minutes Spent Total Time Spent with Patient: Total time spent is greater than 50% in coordination of care (as documented) at patient's floor/unit and/or counseling patient: Coding Level of Care Code 68270 SUB INP/OBS CARE 3/50MIN Diagnoses Gastroenteritis K52.9 Syncope R55 Volume depletion E86.9 Type 2 diabetes mellitus E11.9
[2024-10-27 12:09] LABS: Appearance Urine Clear (Clear); Bacteria Urine Automated 1+ (None Seen); Bilirubin Urine Negative (Negative); Blood Urine Negative (Negative); Cast Urine Automated 0-2 /lpf (0-2); Color Urine Yellow; Glucose Urine UA Negative (Negative); Ketones Urine Trace (Negative); Leukocyte Esterase Urine Negative (Negative); Nitrite Urine Negative (Negative); Protein Urine Trace (Negative); Specific Gravity Urine > 1.045 (1.000-1.030); Urobilinogen Urine Negative (Negative); WBC Urine Automated 0-5 /hpf (0-5)
[2024-10-27] MEDS: Continuous Glucose Monitor SCH (12:19)
--- NOTE | 2024-10-27 14:32 | Discharge Summary ---
Discharge Summary Date of Service October 27, 2024 Principal Dx & Hospital Course #1 = Principal Diagnosis (1) Gastroenteritis: Probable viral etiology. Supportive care. Antiemetics as needed. (2) Syncope: Due to orthostasis. IV fluid resuscitation. (3) Volume depletion: Due to nausea vomiting and diarrhea. Continue IV fluids. (4) Type 2 diabetes mellitus: Advancement to ADA diet. Sliding scale coverage. Plan The patient recovered rapidly and states her nausea and vomiting have completely resolved. She is tolerating oral intake. 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 Reportedly the patient had a normal meal at home with her son who did not get sick and then she developed nausea and then began having fairly violent vomiting green stool and then presyncope and dizziness. Patient has a previous history of type 2 diabetes controlled with Mounjaro with great weight loss and lifestyle modification her A1c is now down to 5.4. She is perimenopausal taking topical estradiol norethindrone, dyslipidemia taking rosuvastatin, depression taking sertralinenone of these medications are new. Patient had a colonoscopy in September which is unrevealing and had a EGD October the 2023 for dysphagia which showed normal esophagus and normal gastric body Patient denies recent loose stools has not been around any other ill contacts as mentioned her son is not ill She felt dramatic improvement, lessening abdominal pain and resolution of nausea with hydration and antiemetic therapy Discharge Exam General-alert and oriented x3, no fever, no chills HEENT-head atraumatic and normocephalic, pupils equal and reactive to light, extraocular muscles intact Neck-no lymphadenopathy or thyromegaly, trachea midline Chest-clear to auscultation. No rales, wheezing or rhonchi Cardiac-regular rate and rhythm, normal S1 and S2 Abdomen-normal bowel sounds, no hepatosplenomegaly Extremities-no cyanosis, clubbing, or edema Neuro-cranial nerves II through XII intact, motor and sensory function within normal limits, strength symmetrical, no focal deficits Psych-normal affect, normal mood Discharge Plan Discharge Items Patient Disposition: Home - Self-Care Reason For Visit: INTRACTABLE NAUSEA AND VOMITING Discharge Diagnosis: Acute viral gastroenteritis, orthostatic syncope due to volume depletion Condition on Discharge: Good Activity: Resume your previous activity Non-emergency contact: Primary Care Provider Call non-emergency contact if: your symptoms worsen Follow-up/Referrals: Elio Oh MD [Primary Care Provider] - Diet: Carb Consistent or DM2 Addtl Attending Provider Instructions: All medications remain the same. See primary care provider within 1 week or as soon as possible Pending Studies at Discharge: No Stand-Alone Forms: My [facility] [employer], Smoking Cessation Medications and DC Order Prescriptions: Continued (DME) Dexcom G7 Sensor Device See Rx Instructions .Route Qty: 3 11RF Rx Instructions: Change sensor every 10 days sertraline [Zoloft] 100 mg tablet 100 mg PO QAM Qty: 90 3RF CombiPatch 0.05-0.14 mg/24 hr patch semiweekly 1 patch transdermal .COMPLEX Qty: 8 3RF Rx Instructions: 1 patch transdermally apply one patch to skin twice weekly.; rosuvastatin 10 mg tablet 10 mg PO DAILY Qty: 90 3RF tirzepatide 5 mg/0.5 mL pen injector 5 mg subcut Q7D Qty: 2 2RF cetirizine [Zyrtec] 10 mg Tablet 10 mg PO QAM Discharge Orders: Discharge Order (Routine); Ordered 10/27/24 Ordered By: Benjamin Garrido Admission Data Admit Date/Time: 10/27/24 05:15 Attending Provider: Ruiz Prado Admit Provider: Ruiz Prado Primary Care Provider: Elio Oh V. Other Providers: Ruiz Prado Hospital Stay Data Consultations 10/27/24 04:40 ED Decision to Admit Stat Diagnostic Imagining Performed 10/27/24 02:58 CT abd pelvis IV con only Stat Pending Results Patient Have Any Pending Studies at Discharge: No Discharge Instructions Given to Patient (Per Discharging Provider) All medications remain the same. See primary care provider within 1 week or as soon as possible Total Time Total Time Spent Total Time Spent (In Minutes): 45 minutes Coding Level of Care Code 63799 INP/OBS DISCH >30 MIN Diagnoses Gastroenteritis K52.9 Syncope R55 Volume depletion E86.9 Type 2 diabetes mellitus E11.9
[2024-10-27] MEDS: FAMOTIDINE 20MG IV PUSH 20 MG/5 ML SYR IV SCH (15:28)
[2024-10-27 15:32] VITALS: BP 103/68; PULSE 75; TEMP 98.2; O2SAT 99
--- NOTE | 2024-10-28 14:33 | Electrocardiogram Report ---
Test Reason : Blood Pressure : */* mmHG Vent. Rate : 93 BPM Atrial Rate : 93 BPM P-R Int : 160 ms QRS Dur : 78 ms QT Int : 354 ms P-R-T Axes : 68 64 40 degrees QTcB Int : 440 ms Poor data quality, interpretation may be adversely affected Normal sinus rhythm Normal ECG No previous ECGs available Confirmed by Leander Pearce ([id number]) on 10/28/2024 2:33:25 PM Referred By: REFERRED SELF Confirmed By: Leander Pearce
== END 2024-10-27 15:55 | disposition home or self-care (01) ==
LOC: SUATTDRO → 3E 02:37 → ED 02:37 → 3E 07:51